=== PATIENT | male | born 1950 | race Caucasian/White ===

== ENCOUNTER 2016-11-02 18:58 | Emergency (ER) | payer OTHER ==
[~2016-11-02] VITALS: Ht 177.8 cm; Wt 92.9 kg
[~2016-11-02 18:58] MED LIST: ADVA250A INH; ASPI-130 PO; CEPH500 PO; DUONI NEB; FURO20 PO; LISI2.5T3 PO; METO50TA PO; OXYC-360 PO; PLAV75TA PO; PRAV20 PO; TAB-TAB PO; TRAM50 PO
[2016-11-02 19:40] VITALS: BP 149/72; PULSE 77; RESP 18; TEMP 98.4; O2SAT 94
[2016-11-02] MEDS ORDERED: ATOR40TA16 PO (19:58)
[2016-11-02] MEDS ORDERED: METO25TA3 PO (19:58)
[2016-11-02] MEDS ORDERED: HYDR-3580 PO (19:58)
[2016-11-02] MEDS ORDERED: ASPI81CH CHEW (19:58)
[2016-11-02] MEDS ORDERED: GLUC500C5 PO (19:58)
[2016-11-02] MEDS ORDERED: CENTCHW3 (19:58)
[2016-11-02] MEDS ORDERED: CELE1CAP8 PO (19:58)
[2016-11-02] MEDS ORDERED: FISHCAP4 PO (19:58)
[2016-11-02] MEDS ORDERED: NIAC500T5 PO (19:58)
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
[2016-11-02] MEDS ORDERED: METHOCARBAMOL 500 MG TAB PO ONE (21:30)
[2016-11-02] MEDS ORDERED: IBUPROFEN 600 MG TAB PO ONE (21:30)
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
[2016-11-02] MEDS ORDERED: IBUP-232 PO (21:35)
[2016-11-02] MEDS ORDERED: ROBA750T PO (21:35)
[2016-11-02 21:59] VITALS: BP 142/72
== END 2016-11-02 22:00 | disposition home or self-care (01) ==
LOC: PHEFT 18:58
DX: S16.1XXA Strain of muscle, fascia and tendon at neck level, initial encounter (principal); S80.01XA Contusion of right knee, initial encounter; M25.512 Pain in left shoulder; I10 Essential (primary) hypertension; E78.00 Pure hypercholesterolemia, unspecified; H91.90 Unspecified hearing loss, unspecified ear; Z87.39 Personal history of other diseases of the musculoskeletal system and connective tissue; Z86.79 Personal history of other diseases of the circulatory system; Z86.69 Personal history of other diseases of the nervous system and sense organs; V89.2XXA Person injured in unspecified motor-vehicle accident, traffic, initial encounter
CPT/HCPCS: 72125